=== PATIENT | male | born 1940 | race Caucasian/White ===

== ENCOUNTER 2017-02-06 11:27 | Inpatient (IN) | payer MEDICARE ==
[2017-02-06 12:37] LABS: HEMATOCRIT 53.6 % (42.0-52.0); HEMOGLOBIN 17.9 gm/dl (14.0-18.0); MEAN CELL VOLUME 93.5 fl (81-97); MEAN CORPUSCULAR HEMOGLOBIN 31.2 pg (27-33); MEAN CORPUSCULAR HGB CONC 33.4 g/dl (32-36); MEAN PLATELET VOLUME 10.8 fl (7.4-10.4); PLATELET COUNT 292 K/uL (130-400); RED BLOOD COUNT 5.73 M/uL (4.40-5.70); RED CELL DISTRIBUTION WIDTH 13.5 % (11.5-14.5); WHITE BLOOD COUNT W/O DIFF 17.2 K/uL (4.2-12.2)
[2017-02-06 12:47] LABS: CREATINE PHOSPHOKINASE 78 U/L (55-170)
[2017-02-06 12:49] LABS: ALB/GLOB RATIO 1.4 (1.1-1.8); ALBUMIN 4.7 gm/dL (3.5-5.0); ANION GAP 23.6 (7-16); BILIRUBIN,TOTAL 0.93 mg/dL (0.2-1.3); CARBON DIOXIDE 19.4 mmol/L (22-30); CREATININE 3.3 mg/dL (0.66-1.25)
[2017-02-06 12:50] LABS: PLATELET ESTIMATE NORMAL (NORMAL)
[2017-02-06 13:00] LABS: CKMB 0.8 ug/L (0-6)
[2017-02-06 13:01] LABS: TROPONIN I < 0.012 ng/mL (0.00-0.034)
--- NOTE | 2017-02-06 14:49 | Emergency Department Record ---
History of Present Illness - General Chief complaint: Weakness Stated complaint: WEAK/CONFUSED/SOB Time Seen by Provider: 02/06/17 11:43 Source: Patient, Family Mode of Arrival: Wheelchair Limitations: No limitations - History of Present Illness Initial comments: pt was found to be more confused then usual by caregiver. pt states he fell and hit head.. MD Complaint: Generalized weakness, Lack of energy Onset/Timin -: Hour(s) Severity: Moderate Improves with: None Worsens with: None - Courtney Coma Scale Eye Response: (4) Open spontaneously Motor Response: (6) Obeys commands Verbal Response: (5) Oriented Courtney Total: 15 - Related Data Home Medications Medication Instructions Recorded Confirmed Last Taken Aspirin Chewable 81 mg PO DAILY 01/02/14 02/06/17 02/06/17 Glipizide/Metformin HCl 1 each PO DAILY 01/02/14 02/06/17 02/06/17 [Glipizide-Metformin 2.5-250 mg] Metoprolol Tartrate [Lopressor] 50 mg PO DAILY 01/02/14 02/06/17 02/06/17 Simvastatin [Simvastatin] 80 mg PO DAILY 01/02/14 02/06/17 02/06/17 Calc/D3/Mag/Zn/Eddie/[place] 1 tab PO DAILY 02/06/17 02/06/17 02/06/17 [Calcium 600 mg Plus Vit D Tab] Multivitamin [Multi-Vitamin Daily] 1 each PO DAILY 02/06/17 02/06/17 02/06/17 Allergies Allergy/AdvReac Type Severity Reaction Status Date / Time NO KNOWN DRUG ALLERGY Allergy HYPERSENSIT Uncoded 02/06/17 11:30 IVITY Travel Screening - Travel/Exposure Within Last 30 Days Have you traveled within the last 30 days?: No - Travel/Exposure Within Last Year Have you traveled outside the [place] in the last year?: No - Additonal Travel Details Have you been exposed to anyone with a communicable illness?: No - Travel Symptoms Symptom Screening: None Review of Systems Reviewed: No additional complaints except as noted below Constitutional: Reports: As per HPI. Denies: Chills, Fever, Malaise, Night sweats, Weakness, Weight change Eyes: Reports: As per HPI. Denies: Eye discharge, Eye pain, Photophobia, Vision change ENT: Reports: As per HPI. Denies: Congestion, Dental pain, Ear pain, Epistaxis , Hearing loss, Throat pain Respiratory: Reports: As per HPI. Denies: Cough, Dyspnea, Hemoptysis, Stridor, Wheezes Cardiovascular: Reports: As per HPI. Denies: Arrhythmia, Chest pain, Dyspnea on exertion, Edema, Murmurs, Orthopnea, Palpitations, Paroxysmal nocturnal dyspnea, Rheumatic Fever, Syncope Endocrine: Reports: As per HPI. Denies: Fatigue, Heat or cold intolerance, Polydipsia, Polyuria Gastrointestinal: Reports: As per HPI. Denies: Abdominal pain, Constipation, Diarrhea, Hematemesis, Hematochezia, Melena, Nausea, Vomiting Genitourinary: Reports: As per HPI. Denies: Dysuria, Frequency, Hematuria, Incontinence, Retention, Testicular pain, Testicular mass, Urgency Musculoskeletal: Reports: As per HPI. Denies: Arthralgia, Back pain, Gout, Joint swelling, Myalgia, Neck pain Skin: Reports: As per HPI. Denies: Bruising, Change in color, Change in hair/ nails, Lesions, Pruritus, Rash Neurological: Reports: As per HPI. Denies: Abnormal gait, Confusion, Headache, Numbness, Paresthesias, Seizure, Tingling, Tremors, Vertigo, Weakness Psychiatric: Reports: As per HPI. Denies: Anxiety, Auditory hallucinations, Depression, Homicidal thoughts, Suicidal thoughts, Visual hallucinations Hematological/Lymphatic: Reports: As per HPI. Denies: Anemia, Blood Clots, Easy bleeding, Easy bruising, Swollen glands Past Medical History - SOCIAL HISTORY Smoking Status: Heavy tobacco smoker (>10/day) Alcohol Use: None Drug Use: None - RESPIRATORY Hx Respiratory Disorders: No - CARDIOVASCULAR Hx Cardio Disorders: Yes Hx Heart Attack: Yes Hx Hypertension: Yes - NEURO Hx Neuro Disorders: No - GI Hx GI Disorders: Yes Hx Diverticulitis: Yes - Hx Genitourinary Disorders: No - ENDOCRINE Hx Endocrine Disorders: Yes Hx Diabetes: Yes - MUSCULOSKELETAL Hx Musculoskeletal Disorders: No - PSYCH Hx Psych Problems: No - HEMATOLOGY/ONCOLOGY Hx Hematology/Oncology Disorders: No Family Medical History Any Significant Family History?: No Physical Exam - General General Appearance: Alert, Oriented x3, Cooperative, Mild distress - Head Head exam: Normal inspection - Eye Eye exam: Normal appearance, PERRL, EOMI Pupils: Normal accommodation - ENT ENT exam: Mucous membranes dry, Normal external ear exam, Normal orophraynx, TM' s normal bilaterally Ear exam: Normal external inspection. negative: External canal tenderness Nasal Exam: Normal inspection. negative: Discharge, Sinus tenderness Mouth exam: Normal external inspection, Tongue normal Teeth exam: Normal inspection. negative: Dental caries Throat exam: Normal inspection. negative: Tonsillar erythema, Tonsillar exudate - Neck Neck exam: Normal inspection, Full ROM. negative: Tenderness - Respiratory Respiratory exam: Normal lung sounds bilaterally. negative: Respiratory distress - Cardiovascular Cardiovascular Exam: Regular rate, Normal rhythm, Normal heart sounds - GI/Abdominal GI/Abdominal exam: Soft, Normal bowel sounds. negative: Tenderness - Rectal Rectal exam: Deferred - exam: Deferred - Extremities Extremities exam: Normal inspection, Full ROM, Normal capillary refill. negative: Tenderness - Back Back exam: Reports: Normal inspection, Full ROM. Denies: Muscle spasm, Rash noted, Tenderness - Neurological Neurological exam: Alert, CN II-XII intact, Normal gait, Oriented X3 - Psychiatric Psychiatric exam: Normal affect, Normal mood - Skin Skin exam: Dry, Intact, Normal color, Warm Course Vital Signs 02/06/17 02/06/17 02/06/17 11:51 12:31 13:49 Temperature 98.0 F Pulse Rate 111 H Pulse Rate [ 86 103 H Livestock Counter ] Respiratory 20 20 20 Rate Blood Pressure 83/61 Blood Pressure 79/61 85/58 [Right Arm] Pulse Ox 96 92 L 93 L Medical Decision Making - Lab Data Result diagrams: 02/06/17 11:50 02/06/17 11:50 Lab Results 02/06/17 02/06/17 02/06/17 Range/Units 11:50 11:50 11:50 WBC 17.2 H (4.2-12.2) K/uL RBC 5.73 H (4.40-5.70) M/uL Hgb 17.9 (14.0-18.0) gm/dl Hct 53.6 H (42.0-52.0) % MCV 93.5 (81-97) fl MCH 31.2 (27-33) pg MCHC 33.4 (32-36) g/dl RDW 13.5 (11.5-14.5) % Plt Count 292 (130-400) K/uL MPV 10.8 H (7.4-10.4) fl Neutrophils % 77.0 (47-80) % Band Neutrophils % 8.0 H (0-5) % Eosinophils % Not Reportable Basophils % Not Reportable Lymphocytes 5.0 L (16-45) % Monocytes Not Reportable Platelet Estimate Normal (NORMAL) RBC Morphology Normal Sodium 144 (136-145) mmol/L Potassium 4.2 (3.5-5.1) mmol/L Chloride 101 (98-107) mmol/L Carbon Dioxide 19.4 L (22-30) mmol/L Anion Gap 23.6 H (7-16) BUN 33 H (9-20) mg/dL Creatinine 3.3 H (0.66-1.25) mg/dL Estimated GFR 19 ml/min POC Glucose (70-110) mg/dL Random Glucose 306 H (70-110) mg/dL Calcium 10.2 H (8.5-10.1) mg/dL Total Bilirubin 0.93 (0.2-1.3) mg/dL AST 34 (17-59) U/L ALT 34 (21-72) U/L Alkaline Phosphatase 104 (38-126) U/L Creatine Kinase 78 (55-170) U/L CK-MB (CK-2) 0.8 (0-6) ug/L Troponin I < 0.012 (0.00-0.034) ng/mL NT-Pro-B Natriuret Pep 1990.00 H (<450) pg/mL Total Protein 8.0 (6.3-8.2) gm/dL Albumin 4.7 (3.5-5.0) gm/dL Globulin 3.3 (1.4-4.8) gm/dL Albumin/Globulin Ratio 1.4 (1.1-1.8) 02/06/17 Range/Units 12:03 WBC (4.2-12.2) K/uL RBC (4.40-5.70) M/uL Hgb (14.0-18.0) gm/dl Hct (42.0-52.0) % MCV (81-97) fl MCH (27-33) pg MCHC (32-36) g/dl RDW (11.5-14.5) % Plt Count (130-400) K/uL MPV (7.4-10.4) fl Neutrophils % (47-80) % Band Neutrophils % (0-5) % Eosinophils % Basophils % Lymphocytes (16-45) % Monocytes Platelet Estimate (NORMAL) RBC Morphology Sodium (136-145) mmol/L Potassium (3.5-5.1) mmol/L Chloride (98-107) mmol/L Carbon Dioxide (22-30) mmol/L Anion Gap (7-16) BUN (9-20) mg/dL Creatinine (0.66-1.25) mg/dL Estimated GFR ml/min POC Glucose 283 H (70-110) mg/dL Random Glucose (70-110) mg/dL Calcium (8.5-10.1) mg/dL Total Bilirubin (0.2-1.3) mg/dL AST (17-59) U/L ALT (21-72) U/L Alkaline Phosphatase (38-126) U/L Creatine Kinase (55-170) U/L CK-MB (CK-2) (0-6) ug/L Troponin I (0.00-0.034) ng/mL NT-Pro-B Natriuret Pep (<450) pg/mL Total Protein (6.3-8.2) gm/dL Albumin (3.5-5.0) gm/dL Globulin (1.4-4.8) gm/dL Albumin/Globulin Ratio (1.1-1.8) Disposition Disposition: Admit Clinical Impression: Renal insufficiency, Hypoxia Hypotension Qualifiers: Hypotension type: unspecified hypotension type Qualified Code(s): I95.9 - Hypotension, unspecified Disposition: Still a Patient at [facility] Decision to Admit: Admit from ER Decision to Admit Date: 02/06/17 Decision to Admit Time: 14:51 Forms: Patient Portal Access Quality - Quality Measures Quality Measures: N/A - Blood Pressure Screening Blood Pressure Classification: Normal BP Reading Systolic Measurement: 83 Diastolic Measurement: 61 Screening for High Blood Pressure: < Normal BP, F/U Not Required > [G8783] Normal BP Follow-up Interventions: No follow-up required
[2017-02-06] MEDS ORDERED: ACETAMINOPHEN 500 MG TABLET PO PRN (16:36)
[2017-02-06] MEDS ORDERED: 0.9 % SODIUM CHLORIDE 1000ML 1,000 ML IV PRN ×2 (16:36→16:52)
[2017-02-06] MEDS: NICOTINE 21 MG/24 HOUR PATCH TD SCH (17:13)
[2017-02-07 06:10] LABS: URINE APPEARANCE CLEAR; URINE BILIRUBIN NEGATIVE (NEGATIVE); URINE BLOOD TRACE-I (NEGATIVE); URINE COLOR YELLOW; URINE GLUCOSE (UA) NEGATIVE (NEGATIVE); URINE KETONE NEGATIVE (NEGATIVE); URINE LEUKOCYTE ESTERASE NEGATIVE (NEGATIVE); URINE NITRITE NEGATIVE (NEGATIVE); URINE UROBILINOGEN 0.2 E.U./dL (0.20 - 1.00)
[2017-02-07 06:27] LABS: URINE CALCIUM OXALATE CRYSTALS 3+ /hpf
[2017-02-07 06:48] LABS: HEMATOCRIT 44.4 % (42.0-52.0); HEMOGLOBIN 14.9 gm/dl (14.0-18.0); MEAN CELL VOLUME 92.5 fl (81-97); MEAN CORPUSCULAR HGB CONC 33.6 g/dl (32-36); MEAN PLATELET VOLUME 10.2 fl (7.4-10.4); PLATELET COUNT 221 K/uL (130-400); RED CELL DISTRIBUTION WIDTH 13.2 % (11.5-14.5); WHITE BLOOD COUNT W/O DIFF 14.3 K/uL (4.2-12.2)
[2017-02-07 06:57] LABS: ANION GAP 11.3 (7-16); CARBON DIOXIDE 23.7 mmol/L (22-30); CREATININE 2.7 mg/dL (0.66-1.25)
[2017-02-07 07:04] LABS: PLATELET ESTIMATE NORMAL (NORMAL)
[2017-02-07] MEDS: HUMULIN R 100 UNIT/ML VIAL SQ SCH ×3 (07:39→17:09)
[2017-02-07] MEDS: ENOXAPARIN 30 MG/0.3 ML SYR SQ SCH (09:21)
[2017-02-07] MEDS ORDERED: ASPIRIN 81 MG CHEWABLE TABLET PO SCH (10:00)
[2017-02-07] MEDS ORDERED: METFORMIN ER HCL 500 MG TAB.ER.24H PO SCH (10:00)
[2017-02-07] MEDS ORDERED: GLIPIZIDE 5 MG TABLET PO SCH (10:00)
[2017-02-07] MEDS ORDERED: 0.9 % SODIUM CHLORIDE 500ML 500 ML IV SCH (11:15)
--- NOTE | 2017-02-07 17:06 | RADIOLOGY REPORT ---
EXAM: CHEST 2 VIEWS HISTORY: DISORIENTATION. VERTIGO SINCE THIS MORNING. CONGESTION AND DYSPNEA. TECHNIQUE: PA and lateral views. COMPARISON: Two-view chest 01/02/14. FINDINGS: Heart is not enlarged. Lungs appear somewhat hyperinflated suggesting underlying COPD. No acute infiltrate is seen. No pleural effusion or pneumothorax evident. size is normal. No acute infiltrate seen. No pleural effusion or pneumothorax evident. Hypertrophic spurring in the spine. IMPRESSION: 1. HYPERINFLATION SUGGESTING COPD. 2. THORACIC CURVE TO THE RIGHT WITH HYPERTROPHIC SPURRING IN THE SPINE. 3. NO ACUTE INFILTRATE IDENTIFIED. JOB NUMBER: [id number] [facility]
[2017-02-07] MEDS: NICOTINE 21 MG/24 HOUR PATCH TD SCH (17:11)
--- NOTE | 2017-02-07 17:14 | CT SCAN REPORT ---
EXAM: CT SCAN HEAD WO CONTRAST HISTORY: CONFUSION, VERTIGO SINCE THIS MORNING. TECHNIQUE: Axial CT scan of the head performed without IV contrast. COMPARISON: No prior head CT. FINDINGS: No definite acute intracranial hemorrhage identified. No focal mass effect or midline shift apparent. No definite acute infarct or intracranial mass lesion seen. Mild generalized atrophy with some chronic-appearing deep white matter changes, nonspecific but likely representing some chronic small vessel deep white matter ischemic disease. Deviation of the nasal septum to the left. Moderate membrane thickening in the right maxillary antrum and mild membrane thickening in the left maxillary antrum. There is probably a post-op defect involving the right mastoid. Clinical correlation suggested. IMPRESSION: 1. NO DEFINITE ACUTE INTRACRANIAL HEMORRHAGE OR FOCAL MASS EFFECT EVIDENT. 2. MEMBRANE THICKENING IN THE MAXILLARY SINUSES BILATERALLY, RIGHT GREATER THAN LEFT. 3. GENERALIZED ATROPHY WITH CHRONIC-APPEARING DEEP WHITE MATTER CHANGES. 4. PROBABLE POST-OP DEFECT RIGHT MASTOID. JOB NUMBER: [id number] [facility]
[2017-02-08 06:00] LABS: ANION GAP 11.8 (7-16); CARBON DIOXIDE 21.2 mmol/L (22-30); CREATININE 1.4 mg/dL (0.66-1.25)
[2017-02-08] MEDS: HUMULIN R 100 UNIT/ML VIAL SQ SCH ×3 (08:37→18:14)
[2017-02-08] MEDS: 0.9 % SODIUM CHLORIDE 10ML SYR IVP SCH ×2 (10:49→23:03)
[2017-02-08] MEDS: METOPROLOL SUCC 25 MG TAB.ER PO SCH (10:55)
[2017-02-08] MEDS: ENOXAPARIN 30 MG/0.3 ML SYR SQ SCH (10:55)
[2017-02-08] MEDS: NICOTINE 21 MG/24 HOUR PATCH TD SCH (18:15)
[2017-02-09 06:38] LABS: BLOOD UREA NITROGEN 28 mg/dL (9-20); CREATININE 1.1 mg/dL (0.66-1.25); EST GLOMERULAR FILTRATION RATE > 60 ml/min; GLUCOSE,RANDOM 96 mg/dL (70-110)
[2017-02-09] MEDS: HUMULIN R 100 UNIT/ML VIAL SQ SCH (08:20)
--- NOTE | 2017-02-09 08:29 | Discharge Note ---
VTE H&P Assessment - Risk for VTE Risk for VTE: Yes Risk Level: Moderate Risk Assessment Date: 02/06/17 Risk Assessment Time: 19:00 VTE Orders Placed or Will Be Placed: Yes Discharge Medications - Discharge Medications Prescriptions: Metoprolol Succinate [Toprol Xl] 25 mg PO DAILY #30 tab.er.24h Home Medications: Ambulatory Orders Aspirin Chewable 81 mg PO DAILY 01/02/14 [Last Taken 02/06/17] Simvastatin 80 mg PO DAILY 01/02/14 [Last Taken 02/06/17] Calc/D3/Mag/Zn/Eddie/[place] [Calcium 600 mg Plus Vit D Tab] 1 tab PO DAILY [Last Taken 02/06/17] Multivitamin [Multi-Vitamin Daily] 1 each PO DAILY 02/06/17 [Last Taken 02/06/17 ] Acetaminophen [Tylenol 500Mg Tab] 1,000 mg PO Q6H PRN 02/09/17 [Last Taken Unknown] Metoprolol Succinate [Toprol Xl] 25 mg PO DAILY #30 tab.er.24h 02/09/17 [Last Taken Unknown] Discharge Note - Date Date of Discharge Note: 02/09/17 Disposition: Home, Self-Care Condition: (1) Good Additional Instructions: follow up with Dr. Sainz in one week acucheck twice a day before breakfast and before dinner Forms: Patient Portal Access
[2017-02-09] MEDS: METOPROLOL SUCC 25 MG TAB.ER PO SCH (09:11)
[2017-02-09] MEDS: ENOXAPARIN 30 MG/0.3 ML SYR SQ SCH (09:11)
--- NOTE | 2017-02-09 10:50 | History and Physical Report ---
DATE OF ADMISSION: CHIEF COMPLAINT: Weakness, confusion, fall and hit his head. HISTORY OF PRESENT ILLNESS: The patient was brought to the emergency department because of increased confusion and a fall where he hit his head. He was evaluated in the emergency department by Dr. Shirley and admitted to the hospital for renal failure, contusion of the head, hypoxia, hypotension. Blood pressure was 83/61. The patient has a new onset renal failure. [facility]
--- NOTE | 2017-02-10 11:10 | Discharge Summary ---
DISCHARGE DIAGNOSES: 1. Acute renal failure, resolving. 2. Diarrhea, resolving. 3. Adverse reaction to metformin. 4. Possible gastroenteritis. 5. Diabetes mellitus. Glucose is running low at this time. We will hold the metformin. 6. Dementia. 7. Weakness, resolving. 8. Contusion of the head, resolving. ATTENDING PHYSICIAN: Kashif Collado DO REASON FOR HOSPITALIZATION: This 76-year-old male presented to the emergency department with weakness, increasing confusion and he fell and hit his head according to caregivers. This was not confirmed by the patient, but his dementia is too bad; he does not remember more than 15 minutes. He was evaluated in the emergency department by Dr. Shirley and admitted to the hospital for renal failure, hypotension, hypoxia. She reported a pulse ox around 88%. It does not look like it is documented but that is the ER report verbally. He was admitted for further evaluation and treatment for his renal failure. The patient did not even know he was having diarrhea, could not tell anybody he was having diarrhea in the ER, but on his first night of admission, he had 20 loose stools and most likely the etiology for his renal failure with dehydration. His white count was 17,200 in the ER. His BUN was 33, creatinine 3.3, glucose 306, potassium 4.2. SIGNIFICANT FINDINGS: The head CT revealed no deficit acute intracranial hemorrhage or focal mass effect. Membranes thickening in the maxillary sinus bilaterally right greater than left. Generalized atrophy with chronic-appearing deep white matter changes. Probable postop defect right mastoid. His chest x-ray revealed hyperinflation suggesting COPD. He is a smoker. Thoracic curve to the right with hypertrophic spurring in the spine. No acute infiltrate identified. As stated, the BUN was 33, creatinine 3.3. It gradually improved. On discharge his BUN was 28 and creatinine 1.1, potassium 3.6, sodium 137. His glucose in the morning fasting was 96. His glucose came down gradually. His metformin was stopped and his sugars came down. I am concerned that it may go up when he starts eating more at home. He is eating well today for breakfast. His white count in the emergency department was 17,200, hemoglobin was 17.9, dropped down to 14,300 for the white count and hemoglobin 14.9 as he was hydrated. THERAPY PROVIDED: Cautious IV hydration. He kept pulling his IV out, so we gave him a bolus of fluid, normal saline 500 mL and then he started hydrating himself orally nicely. His diarrhea resolved slowly. HOSPITAL COURSE: Gradually improved. CONDITION ON DISCHARGE: Improved; however, he does need somebody to assist him at home. The family states they are going to have somebody come in twice a day because he is happily demented and only remembers about half an hour after you tell him anything. DISCHARGE INSTRUCTIONS: Follow up with Dr. Sainz in 1 week. We will stop the metformin and it most likely will have to be restarted cautiously to watch for diarrhea. The Toprol was decreased to 25 mg daily. His blood pressure is running at reasonable level at 25 mg daily at 111/68. His Accu-Chek is what I am going to recommend to check his Accu-Chek twice a day before breakfast and dinner. This may have to be set up. I am not sure if they have this capability yet at home. CC: KARIME SAINZ MD, FACP [facility]
== END 2017-02-09 11:52 | disposition home or self-care (01) | DRG 392 ==
LOC: ER 11:27 → MEDSURG 16:23 → INTOOBSV 16:23 → OBSVTOIN 16:23
PROVIDERS: ADMIT Emergency Medicine; ATTEND Emergency Medicine
DX: R19.7 Diarrhea, unspecified (principal); N17.9 Acute kidney failure, unspecified; N28.9 Disorder of kidney and ureter, unspecified; F03.91 Unspecified dementia, unspecified severity, with behavioral disturbance; E86.0 Dehydration; Z79.84 Long term (current) use of oral hypoglycemic drugs; R41.0 Disorientation, unspecified; F17.200 Nicotine dependence, unspecified, uncomplicated; Z91.81 History of falling; I95.9 Hypotension, unspecified; T38.3X5A Adverse effect of insulin and oral hypoglycemic [antidiabetic] drugs, initial encounter; E11.649 Type 2 diabetes mellitus with hypoglycemia without coma; R53.1 Weakness; S00.93XA Contusion of unspecified part of head, initial encounter
CPT/HCPCS: 99285 ×2; 94760 ×3; 82550; 82553; 84484; 80048; 80053; 36416 ×3; 81001; 82948 ×3; 85027 ×2; 83880; 71020; 70450; 93005; 93010; G0378 ×8; 51798; 87493; 99220; 99233; 99239; J1650; J7040